=== PATIENT | male | born 1975 | race Caucasian/White ===

== ENCOUNTER 2016-10-10 15:39 | Emergency (ER) | payer OTHER ==
[2016-10-10 15:45] VITALS: BP 134/84; PULSE 103; RESP 18; TEMP 98.4
--- NOTE | 2016-10-10 15:58 | ED ---
Skin/Abscess/FB HPI - General Chief complaint: Skin/Abscess/Foreign Body Stated complaint: Rash Time Seen by Provider: 10/10/16 15:48 Source: patient, RN notes reviewed Mode of arrival: ambulatory Limitations: no limitations - History of Present Illness Initial comments: Patient is a 41-year-old male with chief complaint of pruritic painful rash over his arms, face and waist. Patient reports that he was working with wood and cutting down trees approximately 2 days ago. He states that over the past 24 hours she started noticed a blistering like rash occur and is extremely itchy. Patient reports that his coworker also has been treated for poison oak rash. Patient states that he's been trying to wash with Yen dish soap to pull the oil out of his skin however it is not helping at this time. Patient denies any fever or chills. Denies any other associated exposures. - Related Data Home Medications Medication Instructions Recorded Confirmed Hydrocodone/Acetaminophen 1 each PO QID 03/01/14 03/01/14 [Hydrocodone/Acetaminophen 10-325] Previous Rx's Medication Instructions Recorded Famotidine [Pepcid] 20 mg PO BID #30 tablet 03/01/14 predniSONE 20 mg PO DIRECTED #20 tab 03/01/14 Famotidine [Pepcid] 20 mg PO BID #30 tablet 10/10/16 Mupirocin [Mupirocin 2%] 1 applic TOPICAL TID #1 tube 10/10/16 predniSONE 20 mg PO DAILY #20 tab 10/10/16 Allergies Allergy/AdvReac Type Severity Reaction Status Date / Time No Known Allergies Allergy Verified 10/10/16 15:45 Review of Systems ROS Statement: Those systems with pertinent positive or pertinent negative responses have been documented in the HPI. ROS Other: All systems not noted in ROS Statement are negative. Past Medical History Past Medical History: No Reported History History of Any Multi-Drug Resistant Organisms: None Reported Past Surgical History: Orthopedic Surgery Past Psychological History: No Psychological Hx Reported Smoking Status: Current every day smoker Past Alcohol Use History: None Reported Past Drug Use History: None Reported General Exam - General Exam Comments Initial Comments: Well-appearing 41-year-old male. No distress. Limitations: no limitations General appearance: alert, in no apparent distress Head exam: Present: atraumatic, normocephalic, normal inspection Eye exam: Present: normal appearance, PERRL, EOMI. Absent: scleral icterus, conjunctival injection, periorbital swelling ENT exam: Present: normal exam, mucous membranes moist Neck exam: Present: normal inspection. Absent: tenderness, meningismus, lymphadenopathy Respiratory exam: Present: normal lung sounds bilaterally. Absent: respiratory distress, wheezes, rales, rhonchi, stridor Cardiovascular Exam: Present: regular rate, normal rhythm, normal heart sounds. Absent: systolic murmur, diastolic murmur, rubs, gallop, clicks GI/Abdominal exam: Present: soft, normal bowel sounds. Absent: distended, tenderness, guarding, rebound, rigid Extremities exam: Present: normal inspection, full ROM, normal capillary refill. Absent: tenderness, pedal edema, joint swelling, calf tenderness Back exam: Present: normal inspection Neurological exam: Present: alert, oriented X3, CN II-XII intact Psychiatric exam: Present: normal affect, normal mood Skin exam: Present: warm, dry, intact, normal color, rash (sporadic erythematous blister lesion on bilateral arms, right side of face, and trunk. Linear excoration on left arm, superficial impetigo infection. ) Course Vital Signs 10/10/16 15:43 Temperature 98.4 F Pulse Rate 103 H Respiratory 18 Rate Blood Pressure 134/84 O2 Sat by Pulse 98 Oximetry Medical Decision Making - Medical Decision Making Patient is a 41-year-old male with a pruritic rash associated with poison oak or IV. Patient will be placed on oral steroids and pepcid, given a prescription for mupirocin for superficial impetigo on left arm. instructed to apply Caladryl over the areas. I also instructed patient to continue to use Benadryl reports 6 hours to help with itching. Patient agrees with the treatment plan will comply. Return parameters were discussed. Disposition Clinical Impression: Contact dermatitis due to poison oak Disposition: HOME SELF-CARE Condition: Stable Instructions: Poison Bhakti (ED) Additional Instructions: Patient myself continue to take prescriptions as directed. Continue to dose Benadryl every 6 hours as well. Apply the cream over the yellow pustules to ensure no secondary skin infection 3 times a day. Follow-up with primary care provider if symptoms continue to persist, or return to emergency department if any alarming signs or symptoms occur. Prescriptions: Famotidine [Pepcid] 20 mg PO BID #30 tablet Mupirocin [Mupirocin 2%] 1 applic TOPICAL TID #1 tube predniSONE 20 mg PO DAILY #20 tab Referrals: Shawn Lyles MD [Primary Care Provider] - 1-2 days Time of Disposition: 15:57
== END 2016-10-10 16:00 | disposition home or self-care (01) ==
LOC: EC 15:39
DX: L25.5 Unspecified contact dermatitis due to plants, except food (principal); F17.200 Nicotine dependence, unspecified, uncomplicated; Z79.891 Long term (current) use of opiate analgesic
CPT/HCPCS: 99282

== ENCOUNTER 2016-10-23 17:22 | Emergency (ER) | payer OTHER ==
[2016-10-23 17:39] VITALS: BP 132/65; PULSE 80; RESP 16; TEMP 97.5
[2016-10-23] MEDS ORDERED: diphenhydrAMINE 50 MG CAP PO STA (17:54)
[2016-10-23] MEDS ORDERED: methylPREDNISolone SOD SUCCI 125 MG/2 ML VIAL IM ONE (17:54)
--- NOTE | 2016-10-23 18:07 | ED ---
Skin/Abscess/FB HPI - General Chief complaint: Skin/Abscess/Foreign Body Stated complaint: RASH, STATES POISON CURT Time Seen by Provider: 10/23/16 17:42 Source: patient, RN notes reviewed, old records reviewed Mode of arrival: ambulatory Limitations: no limitations - History of Present Illness Initial comments: Patient is a 41-year-old male chief complaint of pruritic rash over his abdomen and groin. Patient was recently treated for poison curt and states that the day after he started to stop to steroid he is continuing to have the rash. Patient states that he has been taking Benadryl however the pain and itching continues to persist. 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 Patient states that he has no chest pain or shortness of breath. No nausea or vomiting. Patient denies any recent fever , chills, shortness of breath, chest pain, back pain, abdominal pain, nausea vomiting, numbness or tingling, dysuria or hematuria, constipation or diarrhea, headaches or visual changes, or any other current symptoms - Related Data Home Medications Medication Instructions Recorded Confirmed Hydrocodone/Acetaminophen 1 each PO QID 03/01/14 03/01/14 [Hydrocodone/Acetaminophen 10-325] Previous Rx's Medication Instructions Recorded Famotidine [Pepcid] 20 mg PO BID #30 tablet 03/01/14 predniSONE 20 mg PO DIRECTED #20 tab 03/01/14 Famotidine [Pepcid] 20 mg PO BID #30 tablet 10/10/16 Mupirocin [Mupirocin 2%] 1 applic TOPICAL TID #1 tube 10/10/16 predniSONE 20 mg PO DAILY #20 tab 10/10/16 Famotidine [Pepcid] 20 mg PO BID #30 tablet 10/23/16 diphenhydrAMINE [Benadryl] 50 mg PO TID PRN #30 capsule 10/23/16 predniSONE 10 mg PO DAILY #42 tab 10/23/16 Allergies Allergy/AdvReac Type Severity Reaction Status Date / Time No Known Allergies Allergy Verified 10/23/16 17:37 Review of Systems ROS Statement: Those systems with pertinent positive or pertinent negative responses have been documented in the HPI. ROS Other: All systems not noted in ROS Statement are negative. Past Medical History Past Medical History: No Reported History History of Any Multi-Drug Resistant Organisms: None Reported Past Surgical History: Orthopedic Surgery Past Psychological History: No Psychological Hx Reported Smoking Status: Current every day smoker Past Alcohol Use History: None Reported Past Drug Use History: None Reported General Exam - General Exam Comments Initial Comments: Well-appearing 41-year-old male. No distress. Limitations: no limitations General appearance: alert, in no apparent distress Head exam: Present: atraumatic, normocephalic, normal inspection Eye exam: Present: normal appearance, PERRL, EOMI. Absent: scleral icterus, conjunctival injection, periorbital swelling ENT exam: Present: normal exam, mucous membranes moist Neck exam: Present: normal inspection. Absent: tenderness, meningismus, lymphadenopathy Respiratory exam: Present: normal lung sounds bilaterally. Absent: respiratory distress, wheezes, rales, rhonchi, stridor Cardiovascular Exam: Present: regular rate, normal rhythm, normal heart sounds. Absent: systolic murmur, diastolic murmur, rubs, gallop, clicks GI/Abdominal exam: Present: soft, normal bowel sounds. Absent: distended, tenderness, guarding, rebound, rigid Extremities exam: Present: normal inspection, full ROM, normal capillary refill. Absent: tenderness, pedal edema, joint swelling, calf tenderness Back exam: Present: normal inspection Neurological exam: Present: alert, oriented X3, CN II-XII intact Psychiatric exam: Present: normal affect, normal mood Skin exam: Present: warm, dry, intact, normal color, rash (Erythematous pruritic rash over abdomen and groin. Rash is linear and appears to be similar to poison curt.) Course Vital Signs 10/23/16 17:37 Temperature 97.5 F L Pulse Rate 80 Respiratory 16 Rate Blood Pressure 132/65 O2 Sat by Pulse 99 Oximetry Medical Decision Making - Medical Decision Making is a 41-year-old male for revisit of poison curt area patient was given IM Solu-Medrol and then represcribed steroids for the next week as well as Pepcid. Discuss he needs to continue to take Benadryl. And advised him to apply calamine lotion over the areas. Patient agrees with treatment plan will comply. Return parameters were discussed. Disposition Clinical Impression: Poison curt dermatitis Disposition: HOME SELF-CARE Condition: Good Instructions: Poison Curt (ED) Additional Instructions: Patient denies to complete steroid pack. Follow-up with primary care provider. Patient needs to continue to use calamine lotion over the areas. Return to the emergency department if any signs or symptoms occur. Prescriptions: Famotidine [Pepcid] 20 mg PO BID #30 tablet diphenhydrAMINE [Benadryl] 50 mg PO TID PRN #30 capsule PRN Reason: Itching predniSONE 10 mg PO DAILY #42 tab Referrals: Shawn Lyles MD [Primary Care Provider] - 1-2 days Time of Disposition: 18:00
== END 2016-10-23 18:26 | disposition home or self-care (01) ==
LOC: EC 17:22
DX: L23.7 Allergic contact dermatitis due to plants, except food (principal); F17.200 Nicotine dependence, unspecified, uncomplicated; Z79.899 Other long term (current) drug therapy
CPT/HCPCS: 99283; 96372; J2930

== ENCOUNTER 2018-04-22 09:28 | Day surgery (SDC) | payer OTHER ==
[2018-04-21 08:29] VITALS: BMI 23.0
[2018-04-22 10:10] VITALS: TEMP 98.1
[2018-04-22] MEDS ORDERED: LACTATED RINGERS 1,000 ML IV ONE (10:11)
[2018-04-22] MEDS ORDERED: LIDOCAINE 1% 20 ML VIAL (10MG/ML) FOR IV START INTRADERMA ONE (10:11)
[2018-04-22] MEDS ORDERED: LIDOCAINE 1% INJ 10MG/ML (20 ML MDV) ONE (10:55)
[2018-04-22] MEDS ORDERED: PROPOFOL 10 MG/ML 20 ML VIAL IV ONE (10:55)
[2018-04-22] MEDS ORDERED: fentaNYL (PF) 50 MCG/ML 2 ML AMP ONE (10:55)
--- NOTE | 2018-04-22 11:24 | P.PCN ---
Date of Procedure: 04/22/18 Procedure(s) Performed: Procedure: Total colonoscopy. Preoperative diagnosis: Screening for neoplasia, patient has family history of colon cancer. Postoperative diagnosis: Exam within normal limits. Preparation: HalfLytely prep. Sedation: Was provided by anesthesia. Brief clinical history: The patient is a 42-year-old male who is scheduled for this evaluation for screening for neoplasia age being his risk factors in addition to family history of colon cancer in his father. The patient has no significant abdominal symptoms, bleeding or anemia. This would be his first colonoscopy. Procedure: With the patient on his left lateral decubitus position and after informed consent and adequate sedation, the perianal area was inspected and it did not show any fissures or fistulas. There were no masses felt on digital rectal examination. The Olympus CFQ 160L video colonoscope was then inserted in the rectum in the usual fashion and advanced to the cecum. The mucosa appeared healthy. No polyps or tumors were seen or any obvious diverticular disease. I retroflexed the endoscope in the rectum before the endoscope was withdrawn. The patient tolerated the procedure well. Plan: The patient was reassured. With his family history, I recommended repeat exam in 5 years. He will follow up with you as planned.
[2018-04-22 11:44] VITALS: PULSE 74; RESP 16
[2018-04-22 11:46] VITALS: BP 138/83
== END 2018-04-22 11:54 | disposition home or self-care (01) ==
LOC: ORWHC2ENDO 09:28
DX: Z12.11 Encounter for screening for malignant neoplasm of colon (principal); Z80.0 Family history of malignant neoplasm of digestive organs
CPT/HCPCS: 45378; J2001; J3010; J2704

== ENCOUNTER 2018-11-01 18:12 | Emergency (ER) | payer OTHER ==
[2018-11-01 18:19] VITALS: RESP 18
[2018-11-01] MEDS ORDERED: SODIUM CHLORIDE 0.9% 1,000 ML IV STA (18:21)
--- NOTE | 2018-11-01 18:49 | ED ---
Chest Pain HPI - General Chief Complaint: Chest Pain Stated Complaint: chest pain Time Seen by Provider: 11/01/18 18:21 Source: patient, RN notes reviewed, old records reviewed Mode of arrival: ambulatory Limitations: no limitations - History of Present Illness Initial Comments: This is a 43-year-old male the ER for evaluation. Patient resents today for evaluation regarding anxiety type reactions. Patient has multiple complaints of symptoms greater than month. Patient has no numbness tingling in his head, numbness tingling in his arms. Chest pain. Kidney pain. Abdominal pain. Nausea vomiting. Patient states he's having sepsis. - Related Data Home Medications Medication Instructions Recorded Confirmed Hydrocodone/Acetaminophen [[place] 1 tab PO QID PRN 11/01/18 11/01/18 10-325] Allergies Allergy/AdvReac Type Severity Reaction Status Date / Time No Known Allergies Allergy Verified 11/01/18 18:48 Review of Systems ROS Statement: Those systems with pertinent positive or pertinent negative responses have been documented in the HPI. ROS Other: All systems not noted in ROS Statement are negative. EKG Findings - EKG Comments: EKG Findings:: EKG shows normal sinus rhythm rate of 96, W[place] 156, QRS 92, QTc 429 Past Medical History Past Medical History: No Reported History Additional Past Medical History / Comment(s): FAMILY HX OF CANCER History of Any Multi-Drug Resistant Organisms: None Reported Past Surgical History: Orthopedic Surgery Additional Past Surgical History / Comment(s): ORIF RT LEG 15 YEARS AGO. PROCEDURE OF PNEUMOTHORAX Past Anesthesia/Blood Transfusion Reactions: Motion Sickness Past Psychological History: No Psychological Hx Reported Smoking Status: Current every day smoker Past Alcohol Use History: None Reported Past Drug Use History: Marijuana - Past Family History Father Family Medical History: Cancer General Exam Limitations: no limitations General appearance: alert, in no apparent distress, anxious Head exam: Present: atraumatic, normocephalic, normal inspection Eye exam: Present: normal appearance, PERRL, EOMI. Absent: scleral icterus, conjunctival injection, periorbital swelling ENT exam: Present: normal exam, mucous membranes moist Neck exam: Present: normal inspection. Absent: tenderness, meningismus, lymphadenopathy Respiratory exam: Present: normal lung sounds bilaterally. Absent: respiratory distress, wheezes, rales, rhonchi, stridor Cardiovascular Exam: Present: regular rate, normal rhythm, normal heart sounds. Absent: systolic murmur, diastolic murmur, rubs, gallop, clicks GI/Abdominal exam: Present: soft, normal bowel sounds. Absent: distended, tenderness, guarding, rebound, rigid Extremities exam: Present: normal inspection, full ROM, normal capillary refill. Absent: tenderness, pedal edema, joint swelling, calf tenderness Back exam: Present: normal inspection Neurological exam: Present: alert, oriented X3, CN II-XII intact Psychiatric exam: Present: normal affect, normal mood Skin exam: Present: warm, dry, intact, normal color. 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 Patient's findings were all normal here in the emergency room. Patient feels better with knowledge of that, patient can be discharged home Disposition Clinical Impression: Atypical chest pain, Chest pain Disposition: HOME SELF-CARE Condition: Good Instructions (If sedation given, give patient instructions): Chest Pain (ED) Is patient prescribed a controlled substance at d/c from ED?: No Referrals: Deepthi Hammonds MD [Primary Care Provider] - 1-2 days
[2018-11-01 19:02] LABS: ALT 40 U/L (21-72); AST 21 U/L (17-59); Alkaline Phosphatase 74 U/L (38-126); Anion Gap 10 mmol/L; Blood Urea Nitrogen 13 mg/dL (9-20); Carbon Dioxide 25 mmol/L (22-30); Chloride 105 mmol/L (98-107); Glucose 85 mg/dL (74-99); Magnesium 2.1 mg/dL (1.6-2.3); Potassium 3.8 mmol/L (3.5-5.1); Sodium 140 mmol/L (137-145); Total Bilirubin 1.6 mg/dL (0.2-1.3)
[2018-11-01 19:03] LABS: Basophils # (A) 0.1 k/uL (0-0.2); Basophils % (A) 1 %; Eosinophils # (A) 0.5 k/uL (0-0.7); Eosinophils % (A) 5 %; HCT 48.6 % (39.0-53.0); HGB 15.8 gm/dL (13.0-17.5); Lymphocytes # (A) 2.9 k/uL (1.0-4.8); Lymphocytes % (A) 27 %; MCH 27.5 pg (25.0-35.0); MCHC 32.5 g/dL (31.0-37.0); MCV 84.5 fL (80.0-100.0); Mean Platelet Volume 8.1; Monocytes # (A) 0.8 k/uL (0-1.0); Monocytes % (A) 7 %; Neutrophils # (A) 6.1 k/uL (1.3-7.7); Neutrophils % (A) 58 %; Platelet Count 263 k/uL (150-450); RBC 5.75 m/uL (4.30-5.90); RDW 14.5 % (11.5-15.5); WBC 10.5 k/uL (3.8-10.6)
[2018-11-01 19:06] LABS: Partial Thromboplastin Time 26.2 sec (22.0-30.0); Prothrombin Time 10.4 sec (9.0-12.0)
--- NOTE | 2018-11-01 19:34 | CT ---
EXAMINATION TYPE: CT facial bones wo con DATE OF EXAM: 11/01/2018 COMPARISON: NONE HISTORY: Left side mandibular pain and swelling. CT DLP: 472.9 mGycm. Automated Exposure Control for Dose Reduction was Utilized. TECHNIQUE: CT scan of the facial bones is performed without contrast, axial images are obtained, cori nal reformatted images are also reviewed. FINDINGS: The mandible is intact. Temporomandibular joints are maintained. There is some artifact fro m cavitary fillings evaluation suboptimal. No worrisome focal fluid collection is seen. Mild haziness of fat stranding over the mandibular symphysis noted anteriorly axial image 12 towards the midline. Maxilla shows some absent premolar and molar teeth bilaterally, right greater than left. There is mild to moderate mucosal thickening involving bilateral maxillary sinuses with tiny air-flui d level on the left noted. There is patchy opacification right posterior sphenoid sinus. There is jade r complete opacification bilateral ethmoid sinuses and frontal sinuses. Ostiomeatal complex is blocke d bilaterally on coronal images. Slight traumatic arches are intact bilaterally. Orbital floors and melton are intact. The globes are i ntact bilaterally. IMPRESSION: Acute on chronic paranasal sinus disease. No suspicious focal fluid collection or absces s.
--- NOTE | 2018-11-01 19:34 | XR ---
EXAMINATION TYPE: XR chest 2V DATE OF EXAM: 11/01/2018 COMPARISON: Chest x-ray November 25, 2008 HISTORY: Weakness. TECHNIQUE: Frontal and lateral views of the chest are obtained. FINDINGS: Overlying EKG leads are present. There is no focal air space opacity, pleural effusion, or pneumothorax seen. The cardiac silhouette size is within normal limits. The osseous structures are intact. IMPRESSION: No acute cardiopulmonary process.
[2018-11-01 20:35] VITALS: BP 129/79; PULSE 77; TEMP 97.6
== END 2018-11-01 20:35 | disposition home or self-care (01) ==
LOC: EC 18:12
DX: R07.89 Other chest pain (principal); F17.200 Nicotine dependence, unspecified, uncomplicated
CPT/HCPCS: 36415; 70486; 71046; 80053; 83605; 83735; 84100; 84484; 85025; 85610; 85730; 87040; 93005; 96360; 96361; 99285

== ENCOUNTER 2018-11-07 02:29 | Emergency (ER) | payer OTHER ==
[2018-11-07 02:45] VITALS: TEMP 97.6
[2018-11-07] MEDS ORDERED: ONDANSETRON 4 MG/2 ML VIAL IVP STA (03:35)
[2018-11-07] MEDS ORDERED: SODIUM CHLORIDE 0.9% 1,000 ML IV STA (03:35)
[2018-11-07] MEDS ORDERED: SODIUM CHLORIDE 0.9% 500 ML 500 ML IV STA (03:35)
[2018-11-07] MEDS ORDERED: FAMOTIDINE 20 MG/2 ML VIAL IV STA (03:36)
--- NOTE | 2018-11-07 03:40 | ED ---
Abdominal Pain HPI - General Source: patient Mode of arrival: ambulatory Limitations: no limitations <Babita Gonzalez - Last Filed: 11/07/18 18:09> <Kita Rebollar - Last Filed: 11/08/18 08:04> - General Chief Complaint: Abdominal Pain Stated Complaint: dental pain, poss allergic reaction Time Seen by Provider: 11/07/18 03:25 - History of Present Illness Initial Comments: 43-year-old male patient presents to the emergency department today for evaluation of not feeling well. Patient states over the last month he has been having intermittent episodes where he feels like his blood pressure will go up, his face will become flushed, and he gets a burning pain in his upper abdomen. Patient states that he was diagnosed with a dental infection a few weeks, was put on penicillin and subsequently had the tooth removed. The patient states he was put on penicillin again and finished dosage last evening. Patient states he thinks he may be ALLERGIC to the medication because he has felt unwell since taking it. States he did wake up from sleep tonight sweating, shaking, and feeling as if his blood pressure is elevated. Patient states that he has seen his primary care physician for these symptoms and was started on Lexapro for possible anxiety. Patient states the medication hasn't helped however he is only had 2 doses. He denies any fever or chills. Denies any chest pain or shortness of breath. States that he does have loose bowel movements every morning. Denies any vomiting. Denies any hematochezia or melena. Patient denies any recent rash, fever, chills, nausea, vomiting, diarrhea, constipation, back pain, numbness, tingling, dizziness, weakness, hematuria, dysuria, urinary urgency, urinary frequency, headache, visual changes, or any other complaints. (Babtia Gonzalez) - Related Data Home Medications Medication Instructions Recorded Confirmed Escitalopram [Lexapro] 5 mg PO DAILY 11/07/18 11/07/18 Previous Rx's Medication Instructions Recorded Clindamycin [Cleocin] 450 mg PO Q6H #28 capsule 11/07/18 Allergies Allergy/AdvReac Type Severity Reaction Status Date / Time No Known Allergies Allergy Verified 11/04/18 12:45 Review of Systems ROS Other: All systems not noted in ROS Statement are negative. <Babita Gonzalez - Last Filed: 11/07/18 18:09> ROS Other: All systems not noted in ROS Statement are negative. <SmoothKita P - Last Filed: 11/08/18 08:04> ROS Statement: Those systems with pertinent positive or pertinent negative responses have been documented in the HPI. Past Medical History Past Medical History: No Reported History Additional Past Medical History / Comment(s): FAMILY HX OF CANCER History of Any Multi-Drug Resistant Organisms: None Reported Past Surgical History: Orthopedic Surgery Additional Past Surgical History / Comment(s): ORIF RT LEG 15 YEARS AGO. PROCEDURE OF PNEUMOTHORAX Past Anesthesia/Blood Transfusion Reactions: Motion Sickness Past Psychological History: No Psychological Hx Reported Smoking Status: Current every day smoker Past Alcohol Use History: None Reported Past Drug Use History: Marijuana - Past Family History Father Family Medical History: Cancer <Babita Gonzalez - Last Filed: 11/07/18 18:09> General Exam Limitations: no limitations General appearance: alert, in no apparent distress, other (Physical well- developed, well-nourished adult male patient in no acute distress. Vital signs upon presentation are temperature 97.6F, pulse 86, respiration 20, blood pressure 125/83, pulse ox 100% on room air.) ENT exam: Present: normal exam, normal oropharynx, mucous membranes moist Respiratory exam: Present: normal lung sounds bilaterally. Absent: respiratory distress, wheezes, rales, rhonchi, stridor Cardiovascular Exam: Present: regular rate, normal rhythm, normal heart sounds. Absent: systolic murmur, diastolic murmur, rubs, gallop, clicks GI/Abdominal exam: Present: soft, normal bowel sounds. Absent: distended, tenderness, guarding, rebound, rigid Neurological exam: Present: alert, oriented X3, CN II-XII intact, other (Strength in all 4 extremities is 5/5.) Psychiatric exam: Present: normal affect, normal mood Skin exam: Present: warm, dry, intact, normal color. Absent: rash <Babita Gonzalez M - Last Filed: 11/07/18 18:09> Course Vital Signs 11/07/18 11/07/18 02:39 05:42 Temperature 97.6 F Pulse Rate 86 63 Respiratory 20 16 Rate Blood Pressure 125/83 104/63 O2 Sat by Pulse 100 98 Oximetry Medical Decision Making - Lab Data Result diagrams: 11/07/18 03:52 11/07/18 03:52 <Babita Gonzalez - Last Filed: 11/07/18 18:09> - Lab Data Result diagrams: 11/07/18 03:52 11/07/18 03:52 <Kita Rebollar - Last Filed: 11/08/18 08:04> - Medical Decision Making 43-year-old male patient presents to emergency department today for evaluation after waking from sleep tonight with sweats, shaking, burning abdominal pain, and feeling as if his blood pressure was elevated. Patient states he also headache with this. Physical examination is unremarkable. He is neurologically intact with no focal deficits. Vital signs are within normal ranges. Labs are pending at this time. Care will be handed over to my attending Dr. Rebollar to follow patient until disposition. (Babita Gonzalez) I personally saw and examined the patient. I reviewed and agree with the mid- level provider findings including all diagnostic interpretations and treatment plans as written unless otherwise stated. Results were discussed with the patient who expresses relief. Patient been resting comfortably. Patient requesting a change in medication for treatment of his dental infection. Clindamycin was prescribed. I did warn the patient that clindamycin can cause diarrhea. (Kita Rebollar) - Lab Data Lab Results 11/07/18 11/07/18 11/07/18 Range/Units 03:52 03:52 04:24 WBC 6.9 (3.8-10.6) k/uL RBC 5.58 (4.30-5.90) m/uL Hgb 15.7 (13.0-17.5) gm/dL Hct 47.0 (39.0-53.0) % MCV 84.2 (80.0-100.0) fL MCH 28.1 (25.0-35.0) pg MCHC 33.4 (31.0-37.0) g/dL RDW 13.4 (11.5-15.5) % Plt Count 193 (150-450) k/uL Neutrophils % 48 % Lymphocytes % 32 % Monocytes % 9 % Eosinophils % 7 % Basophils % 1 % Neutrophils # 3.3 (1.3-7.7) k/uL Lymphocytes # 2.2 (1.0-4.8) k/uL Monocytes # 0.6 (0-1.0) k/uL Eosinophils # 0.5 (0-0.7) k/uL Basophils # 0.0 (0-0.2) k/uL Sodium 138 (137-145) mmol/L Potassium 4.1 (3.5-5.1) mmol/L Chloride 107 (98-107) mmol/L Carbon Dioxide 23 (22-30) mmol/L Anion Gap 8 mmol/L BUN 13 (9-20) mg/dL Creatinine 0.83 (0.66-1.25) mg/dL Est GFR (CKD-EPI)AfAm >90 (>60 ml/min/1.73 sqM) Est GFR (CKD-EPI)NonAf >90 (>60 ml/min/1.73 sqM) Glucose 91 (74-99) mg/dL Calcium 9.8 (8.4-10.2) mg/dL Total Bilirubin 1.3 (0.2-1.3) mg/dL AST 30 (17-59) U/L ALT 33 (21-72) U/L Alkaline Phosphatase 69 (38-126) U/L Total Protein 7.4 (6.3-8.2) g/dL Albumin 4.5 (3.5-5.0) g/dL Amylase 48 (30-110) U/L Lipase 42 (23-300) U/L TSH 3.010 (0.465-4.680) mIU/L Urine Color Yellow Urine Appearance Clear (Clear) Urine pH 5.5 (5.0-8.0) Ur Specific [place] 1.017 (1.001-1.035) Urine Protein Negative (Negative) Urine Glucose (UA) Negative (Negative) Urine Ketones Trace H (Negative) Urine Blood Trace H (Negative) Urine Nitrite Negative (Negative) Urine Bilirubin Negative (Negative) Urine Urobilinogen <2.0 (<2.0) mg/dL Ur Leukocyte Esterase Negative (Negative) Urine RBC 1 (0-5) /hpf Urine WBC 1 (0-5) /hpf Ur Squamous Epith Cells <1 (0-4) /hpf Urine Mucus Occasional H (None) /hpf Disposition Is patient prescribed a controlled substance at d/c from ED?: No <Babita Gonzalez - Last Filed: 11/07/18 18:09> Is patient prescribed a controlled substance at d/c from ED?: No <Kita Rebollar P - Last Filed: 11/08/18 08:04> Clinical Impression: Dental infection, Medication reaction Disposition: HOME SELF-CARE Condition: Stable Instructions (If sedation given, give patient instructions): Toothache (ED) Prescriptions: Clindamycin [Cleocin] 450 mg PO Q6H #28 capsule Referrals: Deepthi Hammonds MD [Primary Care Provider] - 1-2 days
[2018-11-07 04:10] LABS: Basophils % (A) 1 %; Eosinophils # (A) 0.5 k/uL (0-0.7); Eosinophils % (A) 7 %; HGB 15.7 gm/dL (13.0-17.5); Lymphocytes # (A) 2.2 k/uL (1.0-4.8); Lymphocytes % (A) 32 %; MCH 28.1 pg (25.0-35.0); MCHC 33.4 g/dL (31.0-37.0); MCV 84.2 fL (80.0-100.0); Mean Platelet Volume 7.5; Monocytes # (A) 0.6 k/uL (0-1.0); Monocytes % (A) 9 %; Neutrophils # (A) 3.3 k/uL (1.3-7.7); Neutrophils % (A) 48 %; Platelet Count 193 k/uL (150-450); RBC 5.58 m/uL (4.30-5.90); RDW 13.4 % (11.5-15.5); WBC 6.9 k/uL (3.8-10.6)
[2018-11-07 04:28] LABS: ALT 33 U/L (21-72); AST 30 U/L (17-59); Albumin 4.5 g/dL (3.5-5.0); Alkaline Phosphatase 69 U/L (38-126); Amylase 48 U/L (30-110); Anion Gap 8 mmol/L; Blood Urea Nitrogen 13 mg/dL (9-20); Calcium 9.8 mg/dL (8.4-10.2); Carbon Dioxide 23 mmol/L (22-30); Chloride 107 mmol/L (98-107); Glucose 91 mg/dL (74-99); Lipase 42 U/L (23-300); Potassium 4.1 mmol/L (3.5-5.1); Sodium 138 mmol/L (137-145); Total Bilirubin 1.3 mg/dL (0.2-1.3); Total Protein 7.4 g/dL (6.3-8.2)
[2018-11-07 04:42] LABS: Appearance,Urine Clear (Clear); Bilirubin,Urine Negative (Negative); Blood,Urine Trace (Negative); Color,Urine Yellow; Glucose,Urine (UA) Negative (Negative); Ketones,Urine Trace (Negative); Leukocyte Esterase,Urine Negative (Negative); Mucus,Urine Occasional /hpf; Nitrite,Urine Negative (Negative); PH, Urine 5.5 (5.0-8.0); Protein,Urine Negative (Negative); RBC,Urine 1 /hpf (0-5); Specific Gravity,Urine 1.017 (1.001-1.035); Squamous Epithelial Cell,Urine <1 /hpf (0-4); Urobilinogen,Urine <2.0 mg/dL (<2.0); WBC,Urine 1 /hpf (0-5)
[2018-11-07 05:44] VITALS: BP 104/63; PULSE 63; RESP 16
== END 2018-11-07 05:40 | disposition home or self-care (01) ==
LOC: EC 02:29
DX: K04.7 Periapical abscess without sinus (principal); T50.905A Adverse effect of unspecified drugs, medicaments and biological substances, initial encounter; R10.10 Upper abdominal pain, unspecified; K08.409 Partial loss of teeth, unspecified cause, unspecified class; F17.200 Nicotine dependence, unspecified, uncomplicated; Z79.899 Other long term (current) drug therapy; Z53.8 Procedure and treatment not carried out for other reasons
CPT/HCPCS: 36415; 80053; 81001; 82150; 83690; 84443; 85025; 96361; 96374; 99284

== ENCOUNTER 2018-11-18 15:52 | Emergency (ER) | payer OTHER ==
[2018-11-18 16:09] VITALS: TEMP 98.4
[2018-11-18] MEDS ORDERED: SODIUM CHLORIDE 0.9% 1,000 ML IV STA (16:48)
[2018-11-18] MEDS ORDERED: FAMOTIDINE 20 MG/2 ML VIAL IV STA (16:49)
[2018-11-18] MEDS ORDERED: MAG HYDROX/AL HYDROX/SIMETH 30 ML, HYOSCYAMINE ELIXIR 10 ML, CIMETIDINE HCL 300 MG, LID... PO STA ×4 (16:49)
[2018-11-18 17:25] LABS: Basophils % (A) 0 %; Eosinophils # (A) 0.6 k/uL (0-0.7); Eosinophils % (A) 6 %; HCT 47.2 % (39.0-53.0); HGB 15.4 gm/dL (13.0-17.5); Lymphocytes # (A) 2.2 k/uL (1.0-4.8); Lymphocytes % (A) 24 %; MCH 27.9 pg (25.0-35.0); MCHC 32.6 g/dL (31.0-37.0); MCV 85.5 fL (80.0-100.0); Mean Platelet Volume 7.4; Monocytes # (A) 0.5 k/uL (0-1.0); Monocytes % (A) 5 %; Neutrophils # (A) 6.1 k/uL (1.3-7.7); Neutrophils % (A) 64 %; Platelet Count 220 k/uL (150-450); RBC 5.52 m/uL (4.30-5.90); RDW 13.7 % (11.5-15.5); WBC 9.6 k/uL (3.8-10.6)
[2018-11-18 17:27] VITALS: RESP 16
[2018-11-18 17:29] LABS: Appearance,Urine Clear (Clear); Bilirubin,Urine Negative (Negative); Blood,Urine Trace (Negative); Color,Urine Yellow; Glucose,Urine (UA) Negative (Negative); Ketones,Urine Negative (Negative); Leukocyte Esterase,Urine Negative (Negative); Mucus,Urine Rare /hpf; Nitrite,Urine Negative (Negative); Protein,Urine Negative (Negative); RBC,Urine 1 /hpf (0-5); Specific Gravity,Urine 1.028 (1.001-1.035); Urobilinogen,Urine <2.0 mg/dL (<2.0); WBC,Urine <1 /hpf (0-5)
[2018-11-18 17:33] LABS: ALT 12 U/L (21-72); AST 18 U/L (17-59); Albumin 4.6 g/dL (3.5-5.0); Alkaline Phosphatase 70 U/L (38-126); Amylase 50 U/L (30-110); Anion Gap 7 mmol/L; Blood Urea Nitrogen 12 mg/dL (9-20); Calcium 9.9 mg/dL (8.4-10.2); Carbon Dioxide 24 mmol/L (22-30); Chloride 108 mmol/L (98-107); Glucose 88 mg/dL (74-99); Lipase 35 U/L (23-300); Potassium 4.2 mmol/L (3.5-5.1); Sodium 139 mmol/L (137-145); Total Bilirubin 0.8 mg/dL (0.2-1.3); Total Protein 7.4 g/dL (6.3-8.2)
--- NOTE | 2018-11-18 18:47 | XR ---
EXAMINATION TYPE: XR abdomen acute w cxr DATE OF EXAM: 11/18/2018 COMPARISON: NONE HISTORY: Abdominal pain TECHNIQUE: Chest x-ray with supine and upright abdomen FINDINGS: Heart and mediastinum are normal. Lungs are clear. Diaphragm is normal. There is a distended loop of jejunum in the left upper quadrant. There is suggestion of some thumbpri nting. Large bowel gas pattern is normal. There is no sign of free air. There is intramedullary giuliana i n the right femur. There are no pathologic calcifications over the kidneys. IMPRESSION: Normal chest. Dilated loop of jejunum in the left upper quadrant. Clinical significance is not clear. This could relate to partial obstruction or ileus. There is suggestion of thumbprinting and mucosal edema is likely present in the dilated loop.
--- NOTE | 2018-11-18 19:07 | US ---
EXAMINATION TYPE: US abdomen limited DATE OF EXAM: 11/18/2018 COMPARISON: NONE CLINICAL HISTORY: Pain. Epigastric and RUQ pain x 1 month. Vomiting, nausea, dizziness. EXAM MEASUREMENTS: Liver Length: 15.9 cm Gallbladder Wall: 0.30 cm CBD: 0.49 cm Right Kidney: 11.1 X 5.5 X 3.9 cm Limited due to gas. Pancreas: partially obscured by gas Liver: appears wnl Gallbladder: appears anechoic, folds seen Evidence for sonographic Smith's sign: yes CBD: appears wnl Right Kidney: No masses or hydronephrosis seen. Areas appear echogenic with some shadowing,? possibl e scattered tiny stones IMPRESSION: No gallstones or dilated ducts. Possible nonobstructing small renal calculi.
--- NOTE | 2018-11-18 20:30 | CT ---
EXAMINATION TYPE: CT abdomen pelvis w con DATE OF EXAM: 11/18/2018 COMPARISON: None HISTORY: Upper abdominal pain. CT DLP: 688.2 mGycm Automated exposure control for dose reduction was used. TECHNIQUE: Helical acquisition of images was performed from the lung bases through the pelvis. CONTRAST: Performed without Oral Contrast and with IV Contrast, patient injected with 100ml mL of Isovue 300. FINDINGS: Lung bases are clear. There is no pleural effusion. Heart size is normal. There is no pericardial eff usion. Liver shows a probable 1 cm cyst inferior right lobe. There is similar focus in the left lobe. Spleen pancreas gallbladder appear normal. Bile ducts are not dilated. There is no adrenal mass. Kidneys show satisfactory contrast opacification. There is no hydronephrosi s. Ureters are not dilated. There is no retroperitoneal adenopathy. Bladder is almost empty. There is no inguinal hernia. There is no free fluid in the pelvis. There is no ascites. There is no mesenteri c edema. There is no evidence of a bowel obstruction. There is no free air. Appendix appears normal. IMPRESSION: NO SIGN OF ACUTE ABDOMEN AND PELVIS.
--- NOTE | 2018-11-18 20:59 | ED ---
General Adult HPI - General Chief complaint: Back Pain/Injury Stated complaint: kidney pain Time Seen by Provider: 11/18/18 16:12 Source: patient, RN notes reviewed Mode of arrival: ambulatory Limitations: no limitations - History of Present Illness Initial comments: 43-year-old male without any significant past medical history presents to the emergency department for a chief complaint of upper abdominal pain for the past few weeks. He states it is a sharp pain in the epigastric area. Patient does think that eating makes this worse. Denies any bladder or bowel changes. Denies any nausea or vomiting. Denies any back pain. Denies any urinary s ymptoms.no fevers or chills. Patient has no other complaints at this time including shortness of breath, chest pain, abdominal pain, nausea or vomiting, headache, or visual changes. - Related Data Previous Rx's Medication Instructions Recorded Famotidine [Pepcid] 20 mg PO BID #30 tablet 11/18/18 Allergies Allergy/AdvReac Type Severity Reaction Status Date / Time No Known Allergies Allergy Verified 11/18/18 16:32 Review of Systems ROS Statement: Those systems with pertinent positive or pertinent negative responses have been documented in the HPI. ROS Other: All systems not noted in ROS Statement are negative. Past Medical History Past Medical History: No Reported History Additional Past Medical History / Comment(s): FAMILY HX OF CANCER History of Any Multi-Drug Resistant Organisms: None Reported Past Surgical History: Orthopedic Surgery Additional Past Surgical History / Comment(s): ORIF RT LEG 15 YEARS AGO. PROCEDURE OF PNEUMOTHORAX Past Anesthesia/Blood Transfusion Reactions: Motion Sickness Past Psychological History: No Psychological Hx Reported Smoking Status: Current every day smoker Past Alcohol Use History: None Reported Past Drug Use History: Marijuana - Past Family History Father Family Medical History: Cancer General Exam Limitations: no limitations General appearance: alert, in no apparent distress Head exam: Present: atraumatic, normocephalic, normal inspection Eye exam: Present: normal appearance, PERRL, EOMI. Absent: scleral icterus, conjunctival injection, periorbital swelling ENT exam: Present: normal exam, normal oropharynx, mucous membranes moist, TM's normal bilaterally, normal external ear exam Neck exam: Present: normal inspection, full ROM. Absent: tenderness, meningismus, lymphadenopathy Respiratory exam: Present: normal lung sounds bilaterally. Absent: respiratory distress, wheezes, rales, rhonchi, stridor Cardiovascular Exam: Present: regular rate, normal rhythm, normal heart sounds. Absent: systolic murmur, diastolic murmur, rubs, gallop, clicks GI/Abdominal exam: Present: soft, tenderness (Tenderness noted in the epigastric and right upper quadrant areas), normal bowel sounds. Absent: distended, guarding, rebound, rigid Back exam: Absent: CVA tenderness (R), CVA tenderness (L) Neurological exam: Present: alert, oriented X3, CN II-XII intact Psychiatric exam: Present: normal affect, normal mood Course Vital Signs 11/18/18 11/18/18 11/18/18 16:07 17:26 19:00 Temperature 98.4 F Pulse Rate 107 H 85 82 Respiratory 18 16 16 Rate Blood Pressure 130/84 122/81 123/76 O2 Sat by Pulse 99 98 97 Oximetry EKG Findings - EKG Comments: EKG Findings:: EKG shows a normal sinus rhythm, ventricular rate 82, NE interval 162, QRS 92, QTc 413 Medical Decision Making - Medical Decision Making 43-year-old male presents to the emergency department for a chief of her abdominal pain times several weeks. Denies chest pain or shortness of breath. States this does worsen after eating. Describes this as a sharp pain, denies fevers or chills. Denies any urinary symptoms or changes in bowel function. Vitals are stable. CBC and CMP are unremarkable. Urine is negative. Ultrasound shows no gallstones or dilated ducts. X-ray shows a normal chest, dilated loop of jejunum in the left upper quadrant which clinical significance is unclear. Could relate to obstruction or ileus. Suggestion of thumb printing and mucosal edema likely present. Therefore I did order a CAT scan which showed no sign of acute abdomen and pelvis. No evidence of bowel obstruction. Reevaluated patient, feeling better after Pepcid and GI cocktail. Could be related to gastritis. Patient will be given a percent of her Pepcid and GI follow-up. Discussed returning here if he has any worsening symptoms. - Lab Data Result diagrams: 11/18/18 17:10 11/18/18 17:10 Lab Results 11/18/18 11/18/18 11/18/18 Range/Units 17:10 17:10 17:10 WBC 9.6 (3.8-10.6) k/uL RBC 5.52 (4.30-5.90) m/uL Hgb 15.4 (13.0-17.5) gm/dL Hct 47.2 (39.0-53.0) % MCV 85.5 (80.0-100.0) fL MCH 27.9 (25.0-35.0) pg MCHC 32.6 (31.0-37.0) g/dL RDW 13.7 (11.5-15.5) % Plt Count 220 (150-450) k/uL Neutrophils % 64 % Lymphocytes % 24 % Monocytes % 5 % Eosinophils % 6 % Basophils % 0 % Neutrophils # 6.1 (1.3-7.7) k/uL Lymphocytes # 2.2 (1.0-4.8) k/uL Monocytes # 0.5 (0-1.0) k/uL Eosinophils # 0.6 (0-0.7) k/uL Basophils # 0.0 (0-0.2) k/uL Sodium 139 (137-145) mmol/L Potassium 4.2 (3.5-5.1) mmol/L Chloride 108 H (98-107) mmol/L Carbon Dioxide 24 (22-30) mmol/L Anion Gap 7 mmol/L BUN 12 (9-20) mg/dL Creatinine 0.87 (0.66-1.25) mg/dL Est GFR (CKD-EPI)AfAm >90 (>60 ml/min/1.73 sqM) Est GFR (CKD-EPI)NonAf >90 (>60 ml/min/1.73 sqM) Glucose 88 (74-99) mg/dL Calcium 9.9 (8.4-10.2) mg/dL Total Bilirubin 0.8 (0.2-1.3) mg/dL AST 18 (17-59) U/L ALT 12 L (21-72) U/L Alkaline Phosphatase 70 (38-126) U/L Troponin I (0.000-0.034) ng/mL Total Protein 7.4 (6.3-8.2) g/dL Albumin 4.6 (3.5-5.0) g/dL Amylase 50 (30-110) U/L Lipase 35 (23-300) U/L Urine Color Yellow Urine Appearance Clear (Clear) Urine pH 6.0 (5.0-8.0) Ur Specific [place] 1.028 (1.001-1.035) Urine Protein Negative (Negative) Urine Glucose (UA) Negative (Negative) Urine Ketones Negative (Negative) Urine Blood Trace H (Negative) Urine Nitrite Negative (Negative) Urine Bilirubin Negative (Negative) Urine Urobilinogen <2.0 (<2.0) mg/dL Ur Leukocyte Esterase Negative (Negative) Urine RBC 1 (0-5) /hpf Urine WBC <1 (0-5) /hpf Urine Mucus Rare H (None) /hpf 11/18/18 Range/Units 17:10 WBC (3.8-10.6) k/uL RBC (4.30-5.90) m/uL Hgb (13.0-17.5) gm/dL Hct (39.0-53.0) % MCV (80.0-100.0) fL MCH (25.0-35.0) pg MCHC (31.0-37.0) g/dL RDW (11.5-15.5) % Plt Count (150-450) k/uL Neutrophils % % Lymphocytes % % Monocytes % % Eosinophils % % Basophils % % Neutrophils # (1.3-7.7) k/uL Lymphocytes # (1.0-4.8) k/uL Monocytes # (0-1.0) k/uL Eosinophils # (0-0.7) k/uL Basophils # (0-0.2) k/uL Sodium (137-145) mmol/L Potassium (3.5-5.1) mmol/L Chloride (98-107) mmol/L Carbon Dioxide (22-30) mmol/L Anion Gap mmol/L BUN (9-20) mg/dL Creatinine (0.66-1.25) mg/dL Est GFR (CKD-EPI)AfAm (>60 ml/min/1.73 sqM) Est GFR (CKD-EPI)NonAf (>60 ml/min/1.73 sqM) Glucose (74-99) mg/dL Calcium (8.4-10.2) mg/dL Total Bilirubin (0.2-1.3) mg/dL AST (17-59) U/L ALT (21-72) U/L Alkaline Phosphatase (38-126) U/L Troponin I <0.012 (0.000-0.034) ng/mL Total Protein (6.3-8.2) g/dL Albumin (3.5-5.0) g/dL Amylase (30-110) U/L Lipase (23-300) U/L Urine Color Urine Appearance (Clear) Urine pH (5.0-8.0) Ur Specific [place] (1.001-1.035) Urine Protein (Negative) Urine Glucose (UA) (Negative) Urine Ketones (Negative) Urine Blood (Negative) Urine Nitrite (Negative) Urine Bilirubin (Negative) Urine Urobilinogen (<2.0) mg/dL Ur Leukocyte Esterase (Negative) Urine RBC (0-5) /hpf Urine WBC (0-5) /hpf Urine Mucus (None) /hpf Disposition Clinical Impression: Abdominal pain Disposition: HOME SELF-CARE Condition: Good Instructions (If sedation given, give patient instructions): Abdominal Pain (ED), Gastritis (ED) Additional Instructions: Please take perception as directed. Please follow up with GI in 1-2 days as well as primary care. Return here to the emergency department if you have any worsening symptoms. Prescriptions: Famotidine [Pepcid] 20 mg PO BID #30 tablet Is patient prescribed a controlled substance at d/c from ED?: No Referrals: Dudley Dennison MD [Primary Care Provider] - 1-2 days Jeovany Garcia MD [STAFF PHYSICIAN] - 1-2 days Time of Disposition: 20:58
[2018-11-18 21:16] VITALS: BP 127/73; PULSE 92
== END 2018-11-18 21:05 | disposition home or self-care (01) ==
LOC: EC 15:52
DX: R10.13 Epigastric pain (principal); M54.9 Dorsalgia, unspecified; F17.200 Nicotine dependence, unspecified, uncomplicated
CPT/HCPCS: 36415; 93005; 80053; 82150; 83690; 84484; 85025; 81001; 74022; 76705; 74177; 99284; 96374; 96361; Q9967

== ENCOUNTER → 2018-11-28 | Outpatient (CLI) | payer OTHER ==
[2018-11-28 13:04] LABS: Ionized Calcium 5.2 mg/dL (4.5-5.3)
[2018-11-30 09:50] LABS: T4, Free (Free Thyroxine) 1.2 ng/dL (0.80-1.80)
== END | disposition home or self-care (01) ==
LOC: LABMAIN 11:39
PROVIDERS: ATTEND Internal Medicine
DX: R00.2 Palpitations (principal); R42 Dizziness and giddiness
CPT/HCPCS: 36415; 82330; 83970; 84439; 84443; 84481

== ENCOUNTER → 2018-12-03 | Outpatient (CLI) | payer OTHER ==
--- NOTE | 2018-12-03 09:45 | NM ---
EXAMINATION TYPE: NM hepatobiliary w EF DATE OF EXAM: 12/03/2018 COMPARISON: NONE HISTORY: Pain TECHNIQUE: After the intravenous administration of 5.07 mCi Tc 99m Mebrofenin hepatobiliary scintigra phy is performed. Immediate images post injection. FINDINGS: There is satisfactory initial accumulation of tracer by the liver. The gallbladder is visualized wit hin 10 minutes. The small bowel activity is noted within 22 minutes. At one hour 8 ounces of oral e nsure plus is given to mimic CCK and gallbladder ejection fraction is calculated at 58 %, in the norm al range. Therefore there is no scintigraphic evidence of cystic or common bile duct obstruction to suggest acute cholecystitis or gallbladder dyskinesia. IMPRESSION: Exam is within normal limits.
== END ==
LOC: RADNMMAIN 06:48
PROVIDERS: ATTEND Internal Medicine
DX: R10.11 Right upper quadrant pain (principal)
CPT/HCPCS: 78226; A9537

== ENCOUNTER → 2021-09-09 | Outpatient (CLI) | payer OTHER ==
--- NOTE | 2021-09-09 15:38 | XR ---
Left shoulder HISTORY: Left shoulder pain 2 views the left shoulder Bone mineralization, joint spaces and alignment are maintained. No fracture or dislocation. Distal ac romion is downturned. Left lung apex as visualized is normal. IMPRESSION: Correlate for impingement, shoulder MRI may be of benefit.
== END | disposition home or self-care (01) ==
LOC: RADXRMAIN 12:57
PROVIDERS: ATTEND Internal Medicine
DX: M25.512 Pain in left shoulder (principal)

== ENCOUNTER → 2021-10-21 | Outpatient (CLI) | payer OTHER ==
--- NOTE | 2021-10-22 04:20 | MR ---
EXAMINATION TYPE: MR shoulder LT wo con DATE OF EXAM: 10/21/2021 COMPARISON: None HISTORY: Prior xrays on synapse, left shoulder pain limited ROM almost 1 year Multiplanar multiecho imaging of the left shoulder without contrast. Isotope scan is intact. Subscapularis tendon is intact. Glenoid jameson appear normal. The AC joint is intact. No evidence of any significant subacromial impingement. The supraspinatus ten don appears fairly normal. No retraction. The glenohumeral joint is intact. No evidence of focal bone destruction. The infraspinatus tendon is intact. IMPRESSION: Negative MR scan of the left shoulder. No evidence of rotator cuff tear.
== END | disposition home or self-care (01) ==
LOC: RADMRIMAIN 12:41
PROVIDERS: ATTEND Orthopaedic Surgery
DX: M25.512 Pain in left shoulder (principal)